=== PATIENT | male | born 1965 | race Caucasian/White ===

== ENCOUNTER 2024-09-03 06:31 | Observation (INO) ==
--- NOTE | 2024-07-29 16:21 | PAT Medication Instructions ---
Medication Instructions Date of Service July 29, 2024 Home Medications hydrochlorothiazide 25 mg tablet 25 mg PO DAILY PRN Fluid Retention aspirin 81 mg capsule 81 mg PO DAILY celecoxib 200 mg capsule (Celebrex) 200 mg PO QAM cholecalciferol (vitamin D3) 125 mcg (5,000 unit) tablet (Vitamin D3) 125 mcg PO QAM ergocalciferol (vitamin D2) 1,250 mcg (50,000 unit) capsule (Vitamin D2) 1,250 mcg PO QAM fish, borage, flaxseed oils-omega 3,6,9 comb no.1 1,200 mg capsule ([place] 3-6-9) 1 cap PO QAM folic acid 1 mg tablet 1 mg PO BID losartan 50 mg tablet 50 mg PO QAM semaglutide (weight loss) 0.5 mg/0.5 mL subcutaneous pen injector (Wegovy) 0.5 mg subcut Q7D vitamin B12 1,000 mcg-folic acid 400 mcg sublingual tablet 1 tab sublingual QAM vitamin B6-vitamin E-magnesium tablet 1 tab PO QAM ASK your surgeon for instructions celecoxib 200 mg capsule (Celebrex) 200 mg PO QAM ASK your prescriber and surgeon aspirin 81 mg capsule 81 mg PO DAILY STOP taking 2 weeks before surgery (or as soon as possible if surgery is within 2 weeks) fish, borage, flaxseed oils-omega 3,6,9 comb no.1 1,200 mg capsule ([place] 3-6-9) 1 cap PO QAM vitamin B6-vitamin E-magnesium tablet 1 tab PO QAM STOP 7 days prior to surgery semaglutide (weight loss) 0.5 mg/0.5 mL subcutaneous pen injector (Wegovy) 0.5 mg subcut Q7D DO NOT take the morning of surgery hydrochlorothiazide 25 mg tablet 25 mg PO DAILY PRN Fluid Retention cholecalciferol (vitamin D3) 125 mcg (5,000 unit) tablet (Vitamin D3) 125 mcg PO QAM ergocalciferol (vitamin D2) 1,250 mcg (50,000 unit) capsule (Vitamin D2) 1,250 mcg PO QAM folic acid 1 mg tablet 1 mg PO BID losartan 50 mg tablet 50 mg PO QAM vitamin B12 1,000 mcg-folic acid 400 mcg sublingual tablet 1 tab sublingual QAM Take evening before surgery hydrochlorothiazide 25 mg tablet 25 mg PO DAILY PRN Fluid Retention (if needed) folic acid 1 mg tablet 1 mg PO BID MORNING OF SURGERY: NOTHING TO EAT OR DRINK AFTER MIDNIGHT Other Notes If you have any questions please call us at [phone] or [phone] or [phone] or [phone]
--- NOTE | 2024-08-04 15:29 | Anesthesiology Consultation ---
Date of Service August 04, 2024 Assessment & Plan (1) Encounter for pre-operative examination: - Infectious disease screening: Per assessment on 08/04/24- No known recent infectious disease contacts or current infectious disease symptoms. - ASA instructions per surgeon/prescriber - Outpatient joint assessment: Pt currently scheduled for inpatient pathway. If surgeon requests review for outpatient joint pathway, patient is not recommended candidate for outpatient joint program from anesthesia standpoint based on available information. - Wegovy instructions: Patient was recently taking Wegovy for weight loss. Currently on hold due to pharmacy limitations but patient states that he doesn't plan to restart until after surgery even if back in stock with pharmacy. Patient advised that if he does restart prior to surgery, that it would need to be stopped 7 days prior to surgery- patient voiced understanding. - Patient acceptable risk for surgery pending surgeon-ordered PCP preop evaluation (Berenice العلي/[facility], appt 08/27). Chart Review Chart Review: Patient seen in Pre Admission Testing Teaching & Discussion Pre-Anesthesia Teaching/Discussion Notes: Instructed NPO after midnight before surgery,except medications with 15 cc of water. Medication instructions provided according to the PAT guidelines. History Surgery Operation Date: 09/03/24 08:50 Proposed Procedures p Right Total Hip Arthroplasty - Alphonso Camacho MD Height/Weight Height: 5 ft 8 in Weight: 106.5 kg Allergies Allergy/AdvReac Type Severity Reaction Status Date / Time No Known Allergies Allergy Verified 07/29/24 14:28 Medications Home Medications Medication Instructions Recorded Confirmed Last Taken hydrochlorothiazide 25 mg tablet 25 mg PO DAILY PRN Fluid Retention 05/26/18 07/29/24 Unknown aspirin 81 mg capsule 81 mg PO DAILY 07/29/24 07/29/24 Unknown celecoxib 200 mg capsule (Celebrex) 200 mg PO QAM 07/29/24 07/29/24 Unknown cholecalciferol (vitamin D3) 125 125 mcg PO QAM 07/29/24 07/29/24 Unknown mcg (5,000 unit) tablet (Vitamin D3) ergocalciferol (vitamin D2) 1,250 1,250 mcg PO QAM 07/29/24 07/29/24 Unknown mcg (50,000 unit) capsule (Vitamin D2) fish, borage, flaxseed oils-omega 1 cap PO QAM 07/29/24 07/29/24 Unknown 3,6,9 comb no.1 1,200 mg capsule ([place] 3-6-9) folic acid 1 mg tablet 1 mg PO BID 07/29/24 07/29/24 Unknown losartan 50 mg tablet 50 mg PO QAM 07/29/24 07/29/24 Unknown vitamin B12 1,000 mcg-folic acid 1 tab sublingual QAM 07/29/24 07/29/24 Unknown 400 mcg sublingual tablet vitamin B6-vitamin E-magnesium 1 tab PO QAM 07/29/24 07/29/24 Unknown tablet Past Medical History Medical History Diverticulosis Hypertension Lumbar spinal stenosis Milroys disease Occasional LE swelling, HCTZ PRN MTHFR gene mutation No personal history of blood clots Tested d/t family history (sister) Obesity Osteoarthritis Exercise / Class Metabolic Activity II 4-5 Yardwork/Stairs/Walk up hill (one FS: no CP, no SOB) Past Family History Family History Other No significant family history Past Surgical History Surgical History Hx of colonoscopy Hx of hand surgery (2019) Right finger (large splinter removed due to infection) Done under anesthesia Hx of vasectomy Hx of wisdom tooth extraction Past Anesthesia History No Hx of Anesthesia Complications and No Family Hx of Anesthesia Complications History of PONV No Hx of PONV and No Hx of Motion Sickness Social History Smoking Status: Never smoker Do You Dip or Chew Tobacco: No Hx Alcohol Use: Yes Alcohol type: beer alcohol intake frequency: a few times a month Hx Substance Use: No substance use type: does not use Review of Systems Patient denies chest pain, shortness of breath, dyspnea on exertion, fever, chi lls, cough, wheezing, palpitations. Physical Exam Vital Signs BP 112/78 P 89 TEMP 98.3 SP02 96%RA RESP 16 Physical Full cervical extension range of motion. Full TMJ range of motion. TMD > 3.5 finger breaths Mallampati Score I Dentition: intact Lungs: clear throughout to auscultation Cardiac: regular rate and rhythm, no murmurs noted Spine: normal Carotid arteries: negative bruit Extremities: no LE edema Lab Results Anesthesia Preop Results Results Anesthesia Widget: WBC 7.38 K/ul (4.8-10.8) 08/04/24 Hgb 13.6 g/dl (14.0-18.0) L 08/04/24 Hct 39.4 % (42.0-52.0) L 08/04/24 Plt 165 K/uL (130-400) 08/04/24 Na 138 mmol/L (136-145) 08/04/24 K 4.0 mmol/L (3.5-5.1) 08/04/24 Cl 102 mmol/L (98-107) 08/04/24 CO2 28 mmol/L (21-32) 08/04/24 BUN 12 mg/dl (6-23) 08/04/24 Creat 0.80 mg/dl (0.6-1.4) 08/04/24 Glucose Level 79 mg/dl (70-99(Fasting)) 08/04/24 PT 10.8 Seconds (9.0-12.0) 08/04/24 PTT 26 Seconds (21-31) 08/04/24 INR 1.0 (0.9-1.1) 08/04/24 Urine Color Yellow 08/04/24 Urine Appearance Clear (Clear) 08/04/24 Urine pH 6.0 (4.5-7.5) 08/04/24 Urine Specific [place] 1.023 (1.000-1.030) 08/04/24 Urine Protein Negative (Negative) 08/04/24 Urine Glucose (UA) Negative (Negative) 08/04/24 Urine Ketones 2+ (Negative) H 08/04/24 Urine Blood Negative (Negative) 08/04/24 Urine Nitrite Negative (Negative) 08/04/24 Urine Bilirubin Negative (Negative) 08/04/24 Urine Urobilinogen Negative (Negative) 08/04/24 Urine Leukocyte Esterase Negative (Negative) 08/04/24 Blood Type A Positive 08/04/24 Antibody Screen NEGATIVE 08/04/24 Testing Electrocardiogram Date: 08/04/24 NSR at 92bpm. "Normal ECG"
[~2024-09-03 06:31] MED LIST: BUPIVACAINE 0.5 % 5 MG/1 ML PF 10ML VIAL ONE
[2024-09-03] MEDS: FAMOTIDINE 20 MG TAB PO SCH (07:09)
[2024-09-03] MEDS: LR 60ML/HR IV SCH (07:09)
[2024-09-03] MEDS: ACETAMINOPHEN 500 MG TAB PO SCH ×2 (07:09→13:45)
[2024-09-03] MEDS: CeleBREX 200 MG CAP PO SCH (07:09)
[2024-09-03] MEDS: traMADol HCL 50 MG TABLET PO SCH (07:10)
[2024-09-03] MEDS: Scopolamine 1 MG TDSY TD SCH (07:10)
[2024-09-03] MEDS: dexAMETHasone**PF** 10 MG/ML VIAL IV SCH (07:12)
[2024-09-03] MEDS: LR 500ML BOLUS, THEN 15ML/HR IV SCH (07:25)
[2024-09-03] MEDS ORDERED: MIDAZOLAM HCL 1 MG/ML 2ML VIAL ONE (07:26)
[2024-09-03] MEDS ORDERED: LIDOCAINE 2% 2 ML VIAL/AMP(20MG/ML) INFIL ONE (07:46)
[2024-09-03] MEDS ORDERED: PROPOFOL IV EMULSION 10 MG/ML 20 ML VIAL IV ONE ×2 (07:46→10:33)
--- NOTE | 2024-09-03 08:41 | History & Physical Bridge Note ---
Date of Service September 03, 2024 History & Physical Bridge Note I have examined the patient, reviewed the History & Physical and in the interval since the performance of the History & Physical I have noted the following changes of clinical significance: no changes noted
[2024-09-03] MEDS ORDERED: ePHEDrine sulfate 50 MG/ML AMP IV PRN (08:43)
[2024-09-03] MEDS ORDERED: ATROPINE SULFATE 0.1 MG/ML 10ML SYR IV PRN (08:43)
[2024-09-03] MEDS: TRANEXAMIC ACID 1,000 MG **IV Pre-op IV SCH (08:56)
[2024-09-03] MEDS ORDERED: fentaNYL citrate PF 100 MCG/2 ML VIAL ONE (08:59)
[2024-09-03] MEDS: ceFAZolin 2000MG 2,000 MG/15 ML SYR IV SCH ×2 (09:21→16:31)
[2024-09-03] MEDS: ROPIV 0.5% 246mg, Ketorolac 30mg, EPINEPHrine 0.5mg in NSS INFIL SCH (09:46)
[2024-09-03] MEDS: ORTHO JOINT ANESTHETIC ONE (09:46)
[2024-09-03] MEDS: TRANEXAMIC ACID 1,000 MG **IV Intra-op IV SCH (10:30)
--- NOTE | 2024-09-03 11:13 | Operative Report ---
Post Operative Report Pre & Post Diagnosis Operation Date: 09/03/24 08:50 Pre-Op Diagnosis: Right Hip Osteoarthritis Post-Op Diagnosis: Right Hip Osteoarthritis I identified the patient and participated in the time-out.: Yes Procedure Operation Date: 09/03/24 08:50 Actual Procedures p Right Total Hip Arthroplasty, Uncemented(Right) - Alphonso Camacho MD Surgeon Alphonso Camacho MD Car Rental Agency Manager Fede Curtis PA-C; John James PA-C Estimated Blood Loss 100 Findings Consistent with Post-Op Diagnosis Specimens femoral head Description of Procedure I was present during the entire case assisting with positioning, prepping, draping, wound retraction, wound closure, dressing and abduction pillow placement. No fellow present. Please see Dr. Camacho procedure note for specifics of the case. I attest to the content of the Intraoperative Record and any orders documented therein. Any exceptions are noted below.
--- NOTE | 2024-09-03 11:13 | Operative Report ---
Post Operative Report Pre & Post Diagnosis Operation Date: 09/03/24 08:50 Pre-Op Diagnosis: Right Hip Osteoarthritis Post-Op Diagnosis: Right Hip Osteoarthritis I identified the patient and participated in the time-out.: Yes Procedure Operation Date: 09/03/24 08:50 Actual Procedures p Right Total Hip Arthroplasty, Uncemented(Right) - Alphonso Camacho MD Surgeon Alphonso Camacho MD Grain Roaster John James PA-C, KESHAV Curtis PA-C Estimated Blood Loss 100 Findings Consistent with Post-Op Diagnosis Specimens femoral head Description of Procedure Please see Dr. Camacho's procedure note for full details. I was present for the entire case. I assisted with positioning, prepping, draping, retraction, suctioning, wound closure, dressing application, and abduction pillow placement. I attest to the content of the Intraoperative Record and any orders documented therein. Any exceptions are noted below.
[2024-09-03] MEDS ORDERED: bisacodyL 10 MG SUPP PR PRN (11:14)
[2024-09-03] MEDS ORDERED: NALOXONE HCL 0.4 MG/1 ML VIAL/CARP IV PRN (11:14)
[2024-09-03] MEDS ORDERED: MAGNESIUM HYDROXIDE SUSP 30 ML UDC PO PRN (11:14)
[2024-09-03] MEDS ORDERED: ONDANSETRON INJ 2 MG/ML 2 ML VIAL IV PRN (11:14)
[2024-09-03] MEDS ORDERED: METOCLOPRAMIDE HCL INJ 5 MG/ML 2 ML VIAL IV PRN (11:14)
[2024-09-03] MEDS ORDERED: diphenhydrAMINE 50 MG/ML VIAL IV PRN (11:14)
[2024-09-03] MEDS ORDERED: ALUMINUM/MAGNESIUM SUSP 30 ML UDC PO PRN (11:14)
--- NOTE | 2024-09-03 11:20 | Operative Report ---
Post Operative Report Pre & Post Diagnosis Operation Date: 09/03/24 08:50 Pre-Op Diagnosis: Right Hip Osteoarthritis Post-Op Diagnosis: Right Hip Osteoarthritis I identified the patient and participated in the time-out.: Yes Procedure Operation Date: 09/03/24 08:50 Actual Procedures p Right Total Hip Arthroplasty, Uncemented(Right) - Alphonso Camacho MD Surgeon Alphonso Camacho MD Motor Vehicle Salesperson John James PA-C, KESHAV Curtis PA-C Estimated Blood Loss 100 Findings Consistent with Post-Op Diagnosis Specimens Right femoral head Anesthesia Type Spinal MAC Complications none Disposition Disposition: Recovery Room Indications 59-year-old male with right hip osteoarthritis refractory to conservative management. X-rays demonstrate severe joint space narrowing, subchondral sclerosis, and marginal osteophytes. I had a long discussion with him about the risks and benefits of surgery, alternatives to surgery, and expected outcomes. After reviewing all these he elected to proceed with surgery. All questions were answered. Informed consent was signed. Description of Procedure Patient was identified in the preoperative holding area where the surgical site, right hip, was marked. A spinal anesthetic was placed, then the patient was brought back to the main operating room, placed in the operating table and moved into the lateral decubitus position. Axillary roll was placed. All bony prominences were padded. Perioperative antibiotics and tranexamic acid 1 gram IV were administered. The operative extremity was prepped and draped in the normal sterile fashion. Prior to incision a multidisciplinary timeout was called. All in the room were in agreement. We began by making an incision for a posterior approach to the hip. We dissected down through subcutaneous tissues to the level of the fascia. The fascia was incised in line with the incision. Charnley bow was placed. Fatty tissue was reflected posteriorly off the back of the greater trochanter to expose the piriformis and short external rotators of the hip. Quadratus femoris was taken off the femur subperiosteally. The piriformis and short external rotators were dissected off the posterior aspect of the hip. A box cut was made in the capsule. Inferior hip capsule was released off the femur. The femoral head was dislocated. The femoral neck cut was made at our preoperative template. The acetabulum was then exposed. The labrum was sharply excised. Contents of the cotyloid fossa were removed with electrocautery. We then began reaming at a size 8 mm less than our preoperative template. We reamed up by [address] the way up to a size 60 mm cup. This gave us good bleeding cancellus bone circumferentially. The acetabulum was then irrigated out and dried. The real [place] Gription cup was then impacted down into position with 45 degrees of lateral opening and 25 degrees of anteversion. Two cancellous bone screws were placed up into the ilium. Excellent fixation was obtained. A trial liner for a 36 mm femoral head was then placed. Next we turned our attention to the femur. The lateral neck was removed with a box osteotome. Intramedullary guide was used to establish the intramedullary canal. We then broached all the way up to a size 4. We began trialing with a standard offset neck and a +8.5 head. Hip was reduced. Leg lengths were symmetric. The hip was stable in extension and external rotation, and stable in the sleeper position. At 90 degrees of hip flexion the hip could be internally rotated 65 degrees before levering out of the cup. I was very happy with the stability exam. Therefore the hip was dislocated and the femoral trial was removed. The acetabulum was re-exposed, and the trial liner was removed. Chester hole eliminator screw was placed. An Altrx polyethylene liner for a 36 mm femoral head was then impacted into the shell. The locking mechanism was checked to ensure that it had engaged which it had. The femur was re-exposed. The femoral canal was irrigated and dried. The real Actis femoral stem was opened up. This was impacted down into position. The femoral head was opened up and gently impacted down onto the trunnion. The hip was atraumatically reduced. Another 1 gram of IV tranexamic acid was started prior to closure. The wound was irrigated out with sterile Betadine solution. The periarticular injection cocktail was then placed. The short external rotators, piriformis, and posterior capsule were repaired through drill holes in the greater trochanter using #2 Vicryl. The fascia was run with a looped #1 PDS. The subcutaneous layer was closed with #1 PDS. The dermal layer was closed with 2-0 Vicryl. Zip line was used for the skin followed by a Silverlon dressing. A compressive dressing was then placed. The patient was then rolled supine. Leg lengths were rechecked and were symmetric. An abduction pillow was placed. Sedation was lifted and the patient was transferred to the recovery room in stable condition. Summary of implants: Depuy [place] Gription Acetabular Shell Sector Cup, 60 mm outer diameter 2 [place] Cancellous bone screws, 6.5 x 35 and 6.5 x 25 mm Chester hole eliminator [place] Altrx Polyethylene Acetabular Liner, Neutral, with a 36 mm inner diameter DePuy Actis collared cementless Femoral stem, 12/14 taper, size 4 standard offset 36 mm ceramic femoral head with +8.5 offset Postoperative course: Patient will be admitted overnight from the recovery room. Patient will be weightbearing as tolerated with posterior hip precautions. Xarelto for DVT prophylaxis I attest to the content of the Intraoperative Record and any orders documented therein. Any exceptions are noted below.
[2024-09-03] MEDS ORDERED: hydroCHLOROthiazide 25 MG TAB PO PRN (11:21)
--- NOTE | 2024-09-03 12:09 | Anesthesiology Progress Note ---
Date of Service September 03, 2024 Anesthesia Post Procedure Vital Signs Vital Signs: Temp Pulse Pulse Resp BP Pulse Ox O2 Del Method 09/03/24 11:50 77 16 112/69 99 Room Air 09/03/24 11:40 79 17 122/79 96 Room Air 09/03/24 11:30 36.5 C 76 21 124/80 98 Room Air 09/03/24 11:20 83 16 120/73 93 Room Air 09/03/24 11:10 71 23 109/67 97 Room Air 09/03/24 06:57 37.1 C 88 16 136/94 98 Room Air Pain Intensity Right Hip: Pain Intensity: 6 Transfer of Care Handoff Completed per policy Notes Mental Status: alert / awake / arousable Patient Amnestic to Procedure: Yes Nausea / Vomiting: adequately controlled Pain: adequately controlled Airway Patency, RR, SpO2: stable & adequate BP & HR: stable & adequate Hydration State: stable & adequate Neuraxial Anesthesia: was administered and sensory block is resolving Anesthetic Complications: no major complications apparent
--- NOTE | 2024-09-03 12:15 | XRay Report ---
XR pelvis 1-2V routine HISTORY: 59 years-old Male In PACU - Post Surgical right hip arthroplasty COMPARISON: Pelvis radiograph 08/10/2024 TECHNIQUE: AP view the pelvis FINDINGS: [id number] osteoarthritis of the left hip. Scrotal surgical clips. Satisfactory alignment of th e right hip arthroplasty with adjacent soft tissue swelling in the tissue air. No acute fracture or u nexpected opaque foreign body. IMPRESSION: Satisfactory alignment of the right hip arthroplasty. ACT 112: Negative or not required by law. The above report was generated using voice recognition software. It may contain grammatical, syntax o r spelling errors. Electronically signed by: Serjio Ricks M.D. 09/03/2024 12:14 PM
[2024-09-03] MEDS: KETOROLAC TROMETHAMINE 15 MG/ML VIAL IV SCH (13:03)
--- OUTSIDE RECORDS SUMMARY | 2024-09-03 14:30 | External Medical Summary | Continuity of Care Document ---
Author Name Unknown Organization [facility] [id number] Address [address] [place] [address] [id number] Care Team Providers Care Commissary Officer Name Role Phone Berenice Rios Primary Care Physician [phone] [id number] Date(s): 08/10/24 - 08/10/24 [facility] [employer] [address] [id number] [facility] [address] [place] [id number] Encounter Diagnosis Osteoarthritis of right hip(Discharge Diagnosis) - 08/10/24 Discharge Disposition: Home or Self Care Attending Physician: PADMA Boyd, Mesha Referring Physician: MD Janice, Alphonso Chauhan Allergies, Adverse Reactions, Alerts No Known Allergies Medications Adult Aspirin Start: 04/07/24 10:38:00 AM EDT, 81 mg = Start Date: 04/07/24 Status: Ordered CeleBREX 200 mg oral capsule Start: 06/15/24 3:57:00 PM EDT, 1 cap, PO, Daily, Disp# 30 cap, Refills: 2, PRN: as needed for pain,Pharmacy: [id number] Start Date: 06/15/24 Stop Date: 09/13/24 Status: Ordered celecoxib 200 mg oral capsule Start: 04/07/24 10:36:00 AM EDT Start Date: 04/07/24 Status: Ordered ergocalciferol 1.25 mg (50,000 intl units) oral capsule Start: 04/07/24 10:36:00 AM EDT, 1 cap, PO, q7days Start Date: 04/07/24 Status: Ordered folic acid Start: 04/07/24 10:37:00 AM EDT, 1 mg =, PO, Daily Start Date: 04/07/24 Status: Ordered hydroCHLOROthiazide Start: 04/07/24 10:38:00 AM EDT, 25 mg = Start Date: 04/07/24 Status: Ordered losartan 50 mg oral tablet Start: 04/07/24 10:36:00 AM EDT, 1 tab, PO, Daily Start Date: 04/07/24 Status: Ordered Vitamin B12 Start: 04/07/24 10:37:00 AM EDT, 1,000 mcg = Start Date: 04/07/24 Status: Ordered Vitamin B6 Start: 04/07/24 10:37:00 AM EDT, 100 mg = Start Date: 04/07/24 Status: Ordered Vitamin D3 Start: 04/07/24 10:37:00 AM EDT Start Date: 04/07/24 Status: Ordered Mental Status 08/10/24 Barriers to Learning one year None evide nt Mandatory Health Literacy Documentation Yes Health Literacy Communication Barriers N ever Primary Language Guinean Problem List Condition Confirmation Course Effective Dates Status Health St atus Informant Arthritis of right hip Confirmed Active Diagnosis Diagnosis Type Effective Dates Health Status Clinical Service Informant Osteoarthritis of right hip Discharge Diagnosis 08/10/24 Non-Specified Vital Signs Most recent to oldest [Reference Range]: 1 Temperature [36.5-37.9 DegC] 36.4 DegC *LOW* (08/10/24 3:33 PM) Respiratory Rate 20 br/min (08/10/24 3:33 PM) Blood Pressure 116/84mmHg (08/10/24 3:33 PM) Cuff Pulse Pressure 32 mmHg (08/10/24 3:33 PM) Social History Social History Type Response Smoking Status Never smoked cigaret remedios Sex Male Sex Representation Male (finding) Pre-OP H & P * PADMA Boyd [place]: PERFORM Event Display: Pre-OP H & P Authored Date: [id number] Name:TELMA CLARK Jr. Patient Number:[id number] :1965 Date of Service:08/11/2024 Procedure: Right hip arthroplasty Chief Complaint pre op r juanjose History of Present Illness Patient is a59 year-oldmalepresenting today for their pre-operative history and physical examination for the above-noted surgery with Jayden.Patient has been dealing with right hip osteoarthritis For about a year nowand persistent pain despite cortisone injections, therapy and NSAIDs. PatientHas elected to proceed with surgical intervention. He has lost weight for this surgery. He is generally healthy. He has MTHFR gene mutation but has never had any DVT or PE or any blood clot. 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 He denies any history of heart attacks or stroke. He is not a smoker. Review of Systems DeniesRecent illnesses, colds/flu, pneumonia, COVID or COVID exposures; DeniesFevers, chills, malaise; DeniesChest pain, heart palpitations; DeniesShortness of breath, cough; DeniesHeadacheor blurry vision; DeniesAbdominal pain, nausea, vomiting, diarrhea, or urinary symptoms Physical Exam Vitals & Measurements T:36.4C RR:20 BP:116/84 SpO2:97% General: Pt is well nourished, seated on the exam table AA&O, in NAD, calm and cooperative during exam HENT: Nontraumatic, no gross deformity, hearing and vision grossly in-tact, PERRL Heart: +S1, +S2, RRR, no murmurs appreciated Lungs: CTABL, no wheezing appreciated Focusing on the patient'srightlower extremity: Sensation intact to light touch L3 to S1 dermatomes ROM: Flexion 55/ Abduction 20/ External rotation 45 with groin pain/Internal rotation -5 Positive Log roll Walks with limp Bilateral ankle and foot swelling, left > right Difficult to palpatePT pulse PositiveFABER test: 14 inches off bend Positive Stinchfield test Diagnostic Results Pelvis x-ray was done in the office 08/10/2024 that shows moderate to severe right hip osteoarthritis Assessment/Plan Osteoarthritis of right hip Preop The risks and benefits of surgery as well as the post operative course was explained and discussed with the patient. Written consent obtained. The patient's past medical history, surgeries, social history, medication list, allergies and PDMP were reviewed and confirmed with the patient. Frederick romanmedical Cyn has an appointment on 08/27 with PCP.Preoperative orders were placed. EKG and labs were unremarkable.We discussed postoperative pain medications includingoxycodone, tylenol,as well as icing and elevating to control pain. We discussed post operative DVT prophylaxis,Xarelto for 21 days. Patientmay needthe following additional medications after surgery -stool softener as needed to prevent constipation while on narcotics. The patient has been scheduled forpost operative appointments. Home health order was placed for the first 2 weeks after surgery.He would like to do physical therapy in [facility] and a prescription was provided for him and he was instructed to call and set up these appointments starting 2 weeks after his surgery. He was also instructed to obtain a hip kit. He has a walker but he may need a raised toilet seat and shower seat.The patient was given a preoperative booklet and we reviewed the most pertinent things leading up to the surgery and the day of surgery; including any assisted devices pt may need, when/who to call forthe surgery time, where to arrive the day of surgery, NPO after midnight, medications to hold, prepping the skin with CHG to prevent infection etc. All of their questions and concerns were answeredtoday. They were instructed to call our office if they have any further questions or concerns. Problem List/Past Medical History Ongoing Arthritis of right hip Edison's disease MTHFR Procedure/Surgical History Right hand surgery 2017 Medications Home aspirin(Adult Aspirin), 81 mg celecoxib(CeleBREX 200 mg oral capsule), 200 mg= 1 cap, PO, Daily, PRN, 2 refills celecoxib(celecoxib 200 mg oral capsule) cholecalciferol(Vitamin D3) cyanocobalamin(Vitamin B12), 1000 mcg ergocalciferol(ergocalciferol 1.25 mg (50,000 intl units) oral capsule), 21996 Int_Unit= 1 cap, PO,q7days folic acid, 1 mg, PO, Daily hydroCHLOROthiazide, 25 mg losartan(losartan 50 mg oral tablet), 50 mg= 1 tab, PO, Daily pyridoxine(Vitamin B6), 100 mg Allergies NKA Social History Smoking Status Never smoked cigarettes Electronic Signature on File Electronically Reviewed/Signed by: Mesha Boyd PA-C Author Signature Dt/Tm:08/11/2024 04:33 PM Physician Press Operator Helper, Dept. of Orthopaedics and Sports Medicine [facility] - [address], [address] [place] [address] Electronically Reviewed/Signed by: MD Shanta Chiu Signature Dt/Tm: 08/12/2024 08:09AM Division of Sports Medicine [facility] Patient Care team information Care Team Personnel Name: PADMA Rios, Berenice Kenney Position: Referring Member Role: Primary Care Provider Address: [address] [place] [id number]
[2024-09-03] MEDS: Scopolamine CHECK PATCH PLACEMENT SCH (15:01)
--- NOTE | 2024-09-03 16:26 | Orthopedic Progress Note ---
Date of Service September 03, 2024 Assessment & Plan (1) S/P total hip arthroplasty: Plan: Weightbearing as tolerated with walker assistance PT/OT Pain control with p.o. medication DVT prophylaxis with MAINOR stockings and Xarelto Keep dressing in place Will see during morning rounds tomorrow with possible discharge. Admission and Anticipated Discharge Date Admission Date: September 03, 2024 Subjective This 59-year-old male seen this afternoon following right total hip arthroplasty. Patient states that he is doing fairly well. He does not have a tremendous amount of pain. He states his leg feels very heavy and he is unable to lift that but he is able to move his foot. Currently he denies chest pain, shortness of breath, nausea, vomiting or significant numbness or tingling in his right lower extremity. Review of Systems Review of Systems: All systems reviewed & are unremarkable except as noted in Subjective Physical Exam Physical Exam: Right lower extremity: Patient is able to actively dorsi and plantarflex foot. He is able to detect light sensation to touch over the pads of all digits. He is unable to perform an active straight leg raise test. He has no discomfort with logroll testing. He is neurovascularly intact. Results & Data Vital Signs (Past 12 Hours) Vital Signs Temp Pulse Pulse Resp BP Pulse Ox O2 Del Method 09/03/24 15:52 36.7 C 89 17 115/72 94 Room Air 09/03/24 14:59 36.7 C 97 H 20 121/78 97 Room Air 09/03/24 13:32 37.2 C 82 16 135/88 97 Room Air 09/03/24 12:56 36.6 C 76 16 144/87 H 97 Room Air 09/03/24 12:30 36.6 C 73 18 124/73 96 Room Air 09/03/24 12:20 71 14 119/85 95 Room Air 09/03/24 12:05 88 16 135/74 95 Room Air 09/03/24 11:50 77 16 112/69 99 Room Air 09/03/24 11:40 79 17 122/79 96 Room Air 09/03/24 11:30 36.5 C 76 21 124/80 98 Room Air 09/03/24 11:20 83 16 120/73 93 Room Air 09/03/24 11:10 71 23 109/67 97 Room Air 09/03/24 06:57 37.1 C 88 16 136/94 98 Room Air
[2024-09-03] MEDS: oxyCODONE HCL IR 5 MG TAB (IMMEDIATE RELEASE) PO PRN (18:16)
[2024-09-03] MEDS: SENNA 8.6 MG TAB PO ONE (19:44)
[2024-09-03] MEDS: FOLIC ACID 1 MG TAB PO SCH (19:44)
[2024-09-03] MEDS: SENNA 8.6 MG TAB PO SCH (19:44)
[2024-09-03] MEDS: DOCUSATE SODIUM 100 MG CAP PO SCH (20:21)
[2024-09-04 02:13] VITALS: TEMP 98.2
[2024-09-04 06:56] LABS: Basophils # (auto) 0.02 K/uL (0.00-0.20); Basophils % (auto) 0.2 %; Eosinophils # (auto) 0.04 K/uL (0.00-0.50); Eosinophils % (auto) 0.4 %; Hematocrit (blood only) 37.5 % (42.0-52.0); Hemoglobin 12.8 g/dl (14.0-18.0); Immature Granulocytes # (auto) 0.03 K/uL (0.01-0.20); Immature Granulocytes % (auto) 0.3 %; Lymphocytes # (auto) 1.38 K/uL (1.20-3.40); Lymphocytes % (auto) 12.5 %; Mean Corpuscular Hemoglobin 30.5 pg (25.0-34.0); Mean Corpuscular Hgb Conc 34.1 g/dL (32.0-36.0); Mean Corpuscular Volume 89.3 fL (80.0-100.0); Mean Platelet Volume 11.4 fL (9.4-12.4); Monocytes # (auto) 0.98 K/uL (0.11-0.59); Monocytes % (auto) 8.9 %; Neutrophils # (auto) 8.61 K/uL (1.40-6.50); Neutrophils % (auto) 77.7 %; Platelet Count 177 K/uL (130-400); RDW Coefficient of Variation 12.3 % (11.5-14.5); RDW Standard Deviation 40.1 fL (36.4-46.3); White Blood Count 11.06 K/ul (4.8-10.8)
[2024-09-04 07:04] LABS: BUN Creatinine Ratio 20.6 (10-20); Calcium 8.6 mg/dl (8.6-10.3); Creatinine Clr Calc Pharmacy 92.7 ml/min; Potassium 4.2 mmol/L (3.5-5.1)
[2024-09-04 07:15] VITALS: BP 118/77; RESP 16; O2SAT 97
[2024-09-04] MEDS: RIVAROXABAN 10 MG TABLET PO SCH (08:06)
[2024-09-04] MEDS: LOSARTAN POTASSIUM 50 MG TAB PO SCH (08:06)
[2024-09-04] MEDS: FOLIC ACID 400 MCG TAB PO SCH (08:06)
[2024-09-04] MEDS: MULTIVITAMIN TAB PO SCH (08:07)
[2024-09-04] MEDS: CYANOCOBALAMIN (B-12) 500 MCG TABLET PO SCH (08:07)
[2024-09-04] MEDS: CHOLECALCIFEROL 125 MCG (5,000 UNITS) TAB PO SCH (08:08)
[2024-09-04] MEDS: dexAMETHasone 4 MG TAB PO SCH (08:08)
[2024-09-04] MEDS ORDERED: [UNRECOGNIZED DRUG - OTHER] PO SCH (09:00)
[2024-09-04] MEDS ORDERED: MAGNESIUM PO SCH (09:00)
[2024-09-04] MEDS ORDERED: VITAMIN E PO SCH (09:00)
[2024-09-04] MEDS ORDERED: ERGOCALCIFEROL 1250 MCG (50,000 UNITS) CAP PO SCH (09:00)
--- NOTE | 2024-09-04 10:07 | Orthopedic Progress Note ---
Date of Service September 04, 2024 Assessment & Plan (1) S/P total hip arthroplasty: Plan: Weightbearing as tolerated with walker assistance PT/OT Pain control with p.o. medication DVT prophylaxis with MAINOR stockings and Xarelto Keep Silverlon dressing in place Ice with easy wrap Total hip precautions reviewed Plan is to discharge home today with in-home physical therapy Follow-up with [facility] orthopedics as previously scheduled With questions contact our clinic at [phone] Admission and Anticipated Discharge Date Admission Date: September 03, 2024 Subjective This 59-year-old male Is day 1 status post right total hip arthroplasty. Patient states he is doing very well. He states his pain is well-controlled with p.o. pain medication. Currently he denies any chest pain, shortness of breath, fever, chills, sweats, nausea, vomiting, diarrhea or difficulty voiding. He states that he has completed physical therapy and was able to walk without issue with his assistance of his walker. He also has no complaint of numbness or tingling in the right lower extremity. Review of Systems Review of Systems: All systems reviewed & are unremarkable except as noted in Subjective Physical Exam Physical Exam: Right lower extremity: Patient is able to actively dorsi and plantarflex foot. He is able to detect light sensation to touch over the pads of all digits. He is able to perform an active straight leg raise test. He has no discomfort with logroll testing. He is neurovascularly intact. Patient does feel some slight tension with light passive internal rotation. He has no discomfort with external rotation. He tolerates flexion near 90 degrees. He was able to easily transition from a seated to a standing position. His quad strength is 4+ out of 5. Results & Data Vital Signs (Past 12 Hours) Vital Signs Temp Pulse Pulse Resp BP Pulse Ox O2 Del Method 09/04/24 08:30 Room Air 09/04/24 07:11 36.8 C 83 16 118/77 97 Room Air 09/04/24 06:30 36.8 C 81 18 126/76 98 Room Air 09/04/24 02:12 36.8 C 75 18 133/82 97 Room Air Diagnostic Findings Laboratory Results WBC 11.06 K/ul (4.8-10.8) H 09/04/24 06:15 RBC 4.20 M/uL (4.70-6.10) L 09/04/24 06:15 Hgb 12.8 g/dl (14.0-18.0) L 09/04/24 06:15 Hct 37.5 % (42.0-52.0) L 09/04/24 06:15 MCV 89.3 fL (80.0-100.0) 09/04/24 06:15 MCH 30.5 pg (25.0-34.0) 09/04/24 06:15 MCHC 34.1 g/dL (32.0-36.0) 09/04/24 06:15 RDW Std Deviation 40.1 fL (36.4-46.3) 09/04/24 06:15 RDW Coeff of Roxanne 12.3 % (11.5-14.5) 09/04/24 06:15 Plt Count 177 K/uL (130-400) 09/04/24 06:15 MPV 11.4 fL (9.4-12.4) 09/04/24 06:15 Immature Gran % (Auto) 0.3 % 09/04/24 06:15 Neut % (Auto) 77.7 % 09/04/24 06:15 Lymph % (Auto) 12.5 % 09/04/24 06:15 Harris % (Auto) 8.9 % 09/04/24 06:15 Eos % (Auto) 0.4 % 09/04/24 06:15 Baso % (Auto) 0.2 % 09/04/24 06:15 Neut # (Auto) 8.61 K/uL (1.40-6.50) H 09/04/24 06:15 Lymph # (Auto) 1.38 K/uL (1.20-3.40) 09/04/24 06:15 Harris # (Auto) 0.98 K/uL (0.11-0.59) H 09/04/24 06:15 Eos # (Auto) 0.04 K/uL (0.00-0.50) 09/04/24 06:15 Baso # (Auto) 0.02 K/uL (0.00-0.20) 09/04/24 06:15 Immature Gran # (Auto) 0.03 K/uL (0.01-0.20) 09/04/24 06:15 Sodium 137 mmol/L (136-145) 09/04/24 06:15 Potassium 4.2 mmol/L (3.5-5.1) 09/04/24 06:15 Chloride 103 mmol/L (98-107) 09/04/24 06:15 Carbon Dioxide 27 mmol/L (21-32) 09/04/24 06:15 Anion Gap 7 (3-11) 09/04/24 06:15 BUN 21 mg/dl (6-23) 09/04/24 06:15 Creatinine 1.02 mg/dl (0.6-1.4) 09/04/24 06:15 Est Cr Clr Drug Dosing 92.7 ml/min 09/04/24 06:15 eGFR 85.72 09/04/24 06:15 BUN/Creatinine Ratio 20.6 (10-20) H 09/04/24 06:15 Glucose 105 mg/dl (70-99(Fasting)) H 09/04/24 06:15 Calcium 8.6 mg/dl (8.6-10.3) 09/04/24 06:15 Impressions Pelvis X-Ray 09/03/24 11:15 XR pelvis 1-2V routine HISTORY: 59 years-old Male In PACU - Post Surgical right hip arthroplasty COMPARISON: Pelvis radiograph 08/10/2024 TECHNIQUE: AP view the pelvis FINDINGS: Vlbj-us-[id number] osteoarthritis of the left hip. Scrotal surgical clips. Satisfactory alignment of the right hip arthroplasty with adjacent soft tissue swelling in the tissue air. No acute fracture or unexpected opaque foreign body. IMPRESSION: Satisfactory alignment of the right hip arthroplasty. ACT 112: Negative or not required by law. The above report was generated using voice recognition software. It may contain grammatical, syntax or spelling errors. Electronically signed by: Serjio Ricks M.D. 09/03/2024 12:14 PM
[2024-09-04 10:23] VITALS: PULSE 81
--- NOTE | 2024-09-04 12:38 | Discharge Summary ---
Date of Service September 04, 2024 Admission HPI Per Admitting Provider History of Present Illness Patient is a 59 year-old male presenting today for their pre-operative history and physical examination for the above-noted surgery with Dr Camacho. Patient has been dealing with right hip osteoarthritis For about a year now and persistent pain despite cortisone injections, therapy and NSAIDs. Patient Has elected to proceed with surgical intervention. He has lost weight for this surgery. He is generally healthy. He has MTHFR gene mutation but has never had any DVT or PE or any blood clot. Patient also has [place]'s disease and has swelling and edema in his lower legs and toes. He denies any history of heart attacks or stroke. He is not a smoker. Admission Exam Per Admitting Provider Physical Exam Vitals & Measurements T: 36.4 C RR: 20 BP: 116/84 SpO2: 97% General: Pt is well nourished, seated on the exam table AA&O, in NAD, calm and cooperative during exam HENT: Nontraumatic, no gross deformity, hearing and vision grossly in-tact, PERRL Heart: +S1, +S2, RRR, no murmurs appreciated Lungs: CTABL, no wheezing appreciated Focusing on the patient's right lower extremity: Sensation intact to light touch L3 to S1 dermatomes ROM: Flexion 55/ Abduction 20/ External rotation 45 with groin pain/ Internal rotation -5 Positive Log roll Walks with limp Bilateral ankle and foot swelling, left > right Difficult to palpate PT pulse Positive EDY test: 14 inches off bend Positive Stinchfield test Principal Diagnosis Right hip osteoarthritis Discharge Exam Right lower extremity: Patient is able to actively dorsi and plantarflex foot. He is able to detect light sensation to touch over the pads of all digits. He is able to perform an active straight leg raise test. He has no discomfort with logroll testing. He is neurovascularly intact. Patient does feel some slight tension with light passive internal rotation. He has no discomfort with external rotation. He tolerates flexion near 90 degrees. He was able to easily transition from a seated to a standing position. His quad strength is 4+ out of 5. Discharge Data Allergies Allergy/AdvReac Type Severity Reaction Status Date / Time No Known Allergies Allergy Verified 09/03/24 06:53 Procedures Performed Operation Date: 09/03/24 08:50 Actual Procedures p Right Total Hip Arthroplasty, Uncemented(Right) - Alphonso Camacho MD Hospital Course (1) S/P total hip arthroplasty: Patient had an uneventful overnight stay following right total hip arthroplasty. He is very anxious to be discharged home later today. He is scheduled to do in-home physical therapy for the first 2 weeks before transitioning to outpatient physical therapy at [facility]. Weightbearing as tolerated with walker assistance PT/OT Pain control with p.o. medication DVT prophylaxis with MAINOR stockings and Xarelto Keep Silverlon dressing in place Ice with easy wrap Total hip precautions reviewed Plan is to discharge home today with in-home physical therapy Follow-up with [facility] orthopedics as previously scheduled With questions contact our clinic at [phone] Total Time Total Time Spent Total Time Spent (In Minutes): 25 mins Discharge Plan Discharge Items Patient Disposition: Home - Home Health Services Reason For Visit: Right Hip Osteoarthritis Discharge Diagnosis: s/p Right total hip arthroplasty Activity: As commented below Lifting: None Bathing: Keep incision dry Bathing Comment: May shower later today Sexual Activity: Wait until after follow-up appointment Exercise/Sports: Wait until after follow-up appointment Driving/Machine Use: No driving until cleared by diabetes solutions specialist Weightbearing: Right weightbearing Weightbearing Comment: As tolerated with walker assistance Non-emergency contact: Surgeon Call non-emergency contact if: you have any medication questions, your pain is not controlled, your temperature is above 101.5, your wound has increased drainage and your wound pain has increased Follow-up/Referrals: Oleg Richard [Outside Practitioners] - Diet: Regular Addtl Attending Provider Instructions: Post-operative Instructions Dear Patient and Family/Friends, Before you are discharged from the hospital, it is important to know what to expect when you get home after surgery. To that end, we have created this sheet of discharge instructions which covers many commonly asked questions. Make sure you go through this sheet in its entirety with your nurse before you are discharged. Please note that we will go over the specifics of your surgery and recovery when you return for your first post-operative visit. Sincerely, Dr. Camacho Medications 1. Oxycodone 5 mg: Take 1 to 2 tablets every 4-6 hours as needed for postoperative pain control. A prescription for this medication will be sent to your pharmacy 2. Xarelto 10 mg: Take 1 tablet daily for postoperative blood clot prevention for 30 days postoperatively. This will also be sent to your pharmacy. 3. Celebrex 200 mg: Increase your daily Celebrex regimen to twice a day for 30 days postoperatively. If you need additional refill contact the clinic and I will send to your pharmacy. 4. Extra strength Tylenol 500 mg: Take 2 tablets every 6-8 hours as needed for additional pain relief. You may take this with every other dose of the oxycodone. Please purchase this medication. Pain Expect to be in a fair amount of pain after surgery. Remember, our goal is not to eliminate your pain, but to make it tolerable. It is a good idea to stay ahead of your pain by taking the medications you were prescribed once you get home. Typically, the pain starts improving 3-7 days after surgery. You should start weaning off the narcotic pain medication (oxycodone, hydrocodone, hydromorphone, morphine) as soon as your pain improves. Please call our office if your pain is not adequately controlled. Ice Ice your operative site at least 5 times a day for 15-30 minutes at a time. Make sure you have a thin cloth between the ice or cooling unit and your skin to prevent butts bite. This is especially important if you received a nerve block. Continue icing your operative site for the first 5-7 days after surgery, then as needed. Diet/Nausea/Vomiting Start by drinking clear liquids and eating crackers. If you can tolerate this, then you may resume your normal diet. If you feel nauseated or vomit, take Zofran/ondansetron (if prescribed). Please call our office if you have intractable nausea or vomiting, or, if after hours, you may go to the Emergency Room for help. Constipation Constipation is a common side effect of narcotic pain medication. If you have not had a bowel movement within 2 days after surgery, we recommend purchasing an over the counter laxative such as Milk of Magnesia, Dulcolax, or Miralax from a local pharmacy, and taking it as instructed. Call our clinic if any questions. Nerve block The anesthesia team sometimes places a nerve block to help with post-operative pain control. This results in significant numbness and inability to move the extremity. The nerve block usually wears off in 8-12 hours, but sometimes can last up to 24 hours. Please call our office if you are still unable to move your extremity after 24 hours, unless you received a pain pump to take home. Nerve blocks typically wear off quickly, so start taking pain medication as soon as you start feeling soreness near your surgical site. Weight bearing and Range of Motion. Do not bear any weight through your operative extremity immediately after surgery. If you had upper extremity surgery, do not lift anything with that arm. If you are in a knee brace, keep it locked in place until your follow-up. We will discuss your weight bearing, range of motion, and lifting restrictions in detail at your first post-operative appointment. Continuous Passive Motion (CPM) Machine If you were prescribed a CPM machine, it will start after your first post- operative appointment, at which time we will give you instructions on the range of motion settings and duration of treatment Physical therapy You will be given a prescription for physical therapy or occupational therapy at your first post-operative appointment. Typically, patients start therapy within 1 week of surgery Wound care and showering We will inspect your wound at your first post-operative visit, and may do a dressing change at that time. Most patients will be in a water-proof dressing that is removed 14 days after surgery. It is normal to see some dried blood on the dressing. Do not remove your dressing, paper strips or sutures yourself unless you are given permission. Showering is allowed the day after surgery. Do not scrub or remove any dress ings. The wound should not be submerged underwater (i.e. in a bathtub or pool) until 4 weeks after surgery MAINOR stockings If you were given white stockings, these are to be worn at all times except to shower (on both legs) for the first 2 weeks after surgery. Driving You may not drive while taking narcotic pain medication or while in a cast, splint, sling or brace. You, the patient, need to make the final determination about when you are safe to drive, however, the earliest you may consider driving after surgery is below: Hand/Wrist/Elbow Surgery: 3 days Shoulder Surgery: 2 weeks Hip,/Knee/Ankle Surgery: 4 weeks Fracture repair: 6 weeks Return to Work Your return to work depends on what surgery was done and what type of work you do. Please bring any paperwork your employer needs completed to your first post-operative visit. Also, bring a description of your job duties, as this helps us to understand what risks you may face at work. Travel Avoid long distance travel (greater than 1 hour) in airplanes and cars for the first 6 weeks after surgery. If you must travel, you need to have a Doppler ultrasound done before you travel to rule out a blood clot in your legs. Follow-up You should have a follow-up appointment already scheduled 1-2 days after surgery. If not, please contact our office to make this appointment before you leave the hospital. When to call the office It is normal to have swelling and bruising in the limb that was operated on. This will improve with time. It is also normal to have fevers for the first 2 days after surgery. Reasons you should call your doctor include: Uncontrolled pain; Nausea, vomiting, or constipation that does not improve with medication; Fevers over 101.5, chills, sweats; Drainage or bleeding from the wound; Foul odor; Spreading areas of redness; Any other concerns. Contact Information Please call Dr. Camacho's office at [phone] with any concerns. Pending Studies at Discharge: No Stand-Alone Forms: My [facility] Medications and DC Order Prescriptions: New acetaminophen [Tylenol Extra Strength] 500 mg Tablet 1,000 mg PO Q8 30 Days Qty: 180 0RF Xarelto 10 mg Tablet 10 mg PO DAILY 30 Days Qty: 30 0RF oxycodone 5 mg Tablet 5 - 10 mg PO Q4H MDD ongoing tx Max 6/day PRN (Reason: Post op pain contrl) Qty: 28 0RF Continued hydrochlorothiazide 25 mg tablet 25 mg PO DAILY PRN (Reason: Fluid Retention) losartan 50 mg Tablet 50 mg PO QAM celecoxib [Celebrex] 200 mg Capsule 200 mg PO QAM folic acid 1 mg Tablet 1 mg PO BID ergocalciferol (vitamin D2) [Vitamin D2] 1,250 mcg (50,000 unit) Capsule 1,250 mcg PO QAM vitamin B6-vitamin E-magnesium Tablet 1 tab PO QAM cholecalciferol (vitamin D3) [Vitamin D3] 125 mcg (5,000 unit) Tablet 125 mcg PO QAM vitamin [id number] acid 1,000-400 mcg Tablet, Sublingual 1 tab SUBLINGUAL QAM Prospect 3-6-9 1,200 mg Capsule 1 cap PO QAM Discontinued aspirin 81 mg Capsule 81 mg PO DAILY Discharge Orders: Discharge Order (Routine); Ordered 09/04/24 Ordered By: Dong Curtis Admission Data Admit Date/Time: 09/03/24 11:15 Attending Provider: Alphonso Camacho Admit Provider: Alphonso Camacho Primary Care Provider: Berenice Rios Other Providers: [facility],Home [facility] Other Interventions: Discharge Summary Assessment (RN) Last Done: 09/04/24 10:22
[2024-09-04] MEDS ORDERED: CeleBREX 200 MG CAP PO SCH (13:00)
== END 2024-09-04 11:41 | disposition home health service (06) | DRG 470 ==
LOC: ASU 06:31 → 3E 11:15 → INTOOBSV 11:15